=== PATIENT | female | born 1965 | race Caucasian/White ===

== ENCOUNTER → 2016-04-03 | Outpatient (CLI) | payer BC ==
[~2016-04-03] MED LIST: AMITIZA24 MICROGR PO; COLACE100 MG PO; DIAZEPAM5 MG PO; FIORICET 50-301 EACH PO; IMITREX25 MG PO; MEDROL DOSEPAK4 MG PO; NAPROSYN500 MG PO; PROZAC20 M1 PO; Protonix PO; REGLAN10 MG PO; TOPAMAX100 MG PO
== END | disposition home or self-care (01) ==
LOC: NUC 14:21
DX: M79.671 Pain in right foot (principal); G90.521 Complex regional pain syndrome I of right lower limb
CPT/HCPCS: 78315; 78999; A9503

== ENCOUNTER 2016-07-19 22:35 | Emergency (ER) | payer BC ==
[~2016-07-19] VITALS: Ht 177.8 cm; Wt 83.7 kg
[2016-07-20 00:58] LABS: HEMATOCRIT 38.5 % (36.0-46.0); MCH 30.8 PG (29.0-34.0); MCV 93.2 FL (83-99); MEAN PLAT.VOLUME 11.4 uM^3 (9.5-12.4); PLATELET COUNT 324 K/uL (156-360); RBC DIS.WIDTH-CV 13.2 % (11.8-14.6); RBC DIS.WIDTH-SD 45.3 % (39-53); RED BLOOD COUNT 4.13 M/uL (3.80-5.20); WHITE BLOOD COUNT 7.9 K/uL (4.1-10.2)
[2016-07-20 01:13] LABS: ADD MIUA? NO; BILIRUBIN NEGATIVE; BLOOD NEGATIVE; COLOR YELLOW ((YELLOW)); GLUCOSE (STRIP) NEGATIVE; KETONES NEGATIVE; LEUKOCYTES NEGATIVE; NITRITE NEGATIVE; PROTEIN (STRIP) NEGATIVE; SPECIFIC GRAVITY 1.025 (1.000-1.030); UCUL ADDED? NO; UROBILINOGEN 0.2 MG/DL (0.2-1.0)
[2016-07-20 01:13] LABS: CHLORIDE 112 mEq/L (99-109); POTASSIUM 3.9 mEq/L (3.7-5.4); SODIUM 141 mEq/L (136-147)
[2016-07-20 01:15] LABS: GLUCOSE 94 mg/dL (70-99)
[2016-07-20 01:17] LABS: ANION GAP 7 MEQ/L (2-14)
[2016-07-20 01:19] LABS: GFR ESTIMATE (CALCULATED) > 59 mL/min/
[2016-07-20 01:20] LABS: UREA NITROGEN (BUN) 18 mg/dL (9-23)
[2016-07-20 01:44] LABS: TROP-I INTERPRETATION NEGATIVE; TROPONIN-I < 0.01 ng/mL (0.0-0.30)
[2016-07-20 01:46] LABS: QUANTITATIVE HCG < 4.0 MIU/ML
[2016-07-20 02:11] VITALS: BP 122/78
== END 2016-07-20 02:12 | disposition home or self-care (01) ==
LOC: EME 22:35
PROVIDERS: Physician Assistant
DX: R00.2 Palpitations (principal); F17.200 Nicotine dependence, unspecified, uncomplicated; Z85.3 Personal history of malignant neoplasm of breast; Z87.442 Personal history of urinary calculi
CPT/HCPCS: 71020; 80048; 81003; 84484; 84702; 85027; 93005; 99281; 99285; J7030